=== PATIENT | male | born 1945 | race Caucasian/White ===

== ENCOUNTER 2019-05-14 12:04 | Outpatient (CLI) | payer MEDICARE, MEDICAID ==
--- NOTE | 2019-05-14 15:38 | MRI ---
MRI OF LEFT KNEE WITHOUT CONTRAST: 05/14/19 HISTORY: S83.242, tear of medial meniscus left knee. COMPARISON: None. FINDINGS: MEDIAL MENISCUS: High grade radial tear body posterior horn medial meniscus nearly 2 cm from the footprint involving t he free edge intermediate zone and portion of the red zone. There is a 4 mm medial gutter extrusion w ith loss of hoop stress. LATERAL MENISCUS: Intact. ACL and PCL are intact. MCL and LCL are intact. EXTENSOR MECHANISM: Quadriceps tendon and patella and patellar tendon are intact. CARTILAGE: Patellofemoral compartment: Multifocal full thickness cartilage fissures with subcortical reactive marrow changes of medial and l ateral trochlea and central trochlea as well as high grade cartilage fraying, greater than 50%, at th e lateral patella facet and patellar apex. Medial compartment: Full thickness cartilage defect throughout the posterior weightbearing surface medial femoral condyle involving the posterior flexion zone with subcortical reactive marrow changes and osteophyte formati on. There is also high grade 2% cartilage loss of the central weightbearing surface medial tibial geno teau. Lateral compartment: Multifocal 50-75% cartilage fissures. At the junction of the anterior weightbearing surface of the la teral femoral condyle and lateral trochlea is a full thickness cartilage loss with marrow edema. BONES: There is edema of the footprint of the medial meniscus or subcortical ganglion pseudocyst formation. SOFT TISSUES: Moderate to large joint effusion with mild synovitis. MUSCLES: Muscle signal is normal. IMPRESSION: 1. High grade radial tear posterior horn medial meniscus nearly 2 cm from the footprint and ext ending from the free edge of the intermediate and portion of the red zone with 4 mm medial gutter ext rusion and loss of hoop stress. 2. 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 3. Multifocal grade II and early grade II chondromalacia of the lateral compartment. 4. Moderate to large joint effusion with synovitis. 5. Thickened and edematous medial patellar plica. POS: HOME
== END 2019-05-14 12:05 | disposition home or self-care (01) ==
LOC: BICMRI 12:04
PROVIDERS: ATTEND Orthopaedic Surgery
DX: S83.242A Other tear of medial meniscus, current injury, left knee, initial encounter (principal); M22.42 Chondromalacia patellae, left knee; M25.462 Effusion, left knee; M65.862 Other synovitis and tenosynovitis, left lower leg

== ENCOUNTER 2019-06-18 10:10 | Outpatient (CLI) | payer MEDICARE, MEDICAID ==
[2019-06-18] MEDS ORDERED: ISOVUE-370 76%-LOCM 1 ML ONE (16:14)
--- NOTE | 2019-06-18 16:53 | CT ---
CT ABDOMEN AND PELVIS WITH AND WITHOUT IV CONTRAST: 06/18/19 HISTORY: Cancer of urinary bladder neck. History of prior surgery to remove cancer. COMPARISON: 12/09/13. FINDINGS: Vascular calcifications are seen in the abdominal aorta and involving the iliac arteries. Calcified granulomata are seen at the right lung base. There is a pulmonary nodule in a subpleural lo cation posterior left lower lobe which measures approximately 8 mm. Bibasilar atelectasis is present . There are hypodense hepatic lesions seen scattered throughout each lobe of the liver, also seen on pr ior exam in 2013 and given stability since prior exam, findings are likely related to multiple hepati c cysts. The spleen, pancreas, and bilateral adrenal glands demonstrate a normal CT appearance. A few subcentimeter too small to characterize hypodense lesions are seen in the right kidney. The lar ge hypodense lesion seen in the left kidney which are larger in size when compared to the prior study , but these larger hypodense cystic lesions demonstrate attenuation coefficients most compatible with renal cysts, largest in the mid portion left kidney measuring 2.5 cm. A nonobstructing inferior pole calculus measuring approximately 2 to 3 mm is now seen with two additional calcifications seen in th e superior pole left kidney which may represent either vascular calcifications or nonobstructing corey l calculi measuring approximately 3 mm. No right renal calculus is seen, and there is no evidence of a ureteral calculus seen bilaterally. The urinary bladder is incompletely distended but grossly gaston l in appearance. Small amount of retained fecal material seen throughout the colon. Loops of small bowel are normal in caliber. Degenerative changes are seen in the spine. Slight density in the proximal right femur has characteri stics most compatible with a bone island. IMPRESSION: 1. Nonobstructing left renal calculi with question of a tiny punctate right renal calculus versu s nonobstructing calculus. 2. Left renal cysts which have enlarged from prior study with subcentimeter too small to charact erize hypodense lesions right kidney. No enhancing renal mass seen. 3. Hepatic cysts. POS: [facility]
== END 2019-06-18 10:11 | disposition home or self-care (01) ==
LOC: BICCT 10:10
PROVIDERS: ATTEND Urology
DX: C67.5 Malignant neoplasm of bladder neck (principal); N20.0 Calculus of kidney; N28.1 Cyst of kidney, acquired; K76.89 Other specified diseases of liver
CPT/HCPCS: 74178; 82565; Q9966

== ENCOUNTER 2019-07-28 13:25 | Outpatient (CLI) | payer MEDICARE, MEDICAID ==
[2019-07-28 14:55] LABS: Hemoglobin 14.4 g/dL (14.0-18.0); Mean Corpuscular HGB CONC 34.6 g/dL (32.0-36.0); Mean Corpuscular Volume 95.2 fL (78.0-98.0); Mean Platelet Volume 7.7 fL (7.4-10.4); Platelet Count 278 thou/uL (130-400); RBC Distribution Width 13.1 % (11.5-14.5); Red Blood Cell (RBC) Count 4.37 mill/uL (4.70-6.10); White Blood Cell (WBC) Count 16.8 thou/uL (4.8-10.8)
[2019-07-28 14:58] LABS: INR-International Normal Ratio 1.1; Prothrombin Time 13.8 SEC (12.0-14.7)
[2019-07-28 14:59] LABS: PTT 31.6 SEC (22.9-36.1)
[2019-07-28 15:16] LABS: Anion Gap 13 mmol/L (10-20); BUN (Urea Nitrogen) 21 mg/dL (8.4-25.7); Calc. Creatinine Clearance 0 mL/min (70-130); Calcium 9.8 mg/dL (7.8-10.44); Carbon Dioxide 22 mmol/L (23-31); Chloride 105 mmol/L (98-107); Estimated GFR-MDRD 71; Glucose 90 mg/dL (83-110); Potassium 4.4 mmol/L (3.5-5.1); Sodium 136 mmol/L (136-145)
--- NOTE | 2019-07-29 19:58 | EKG ---
Test Reason : Blood Pressure : / mmHG Vent. Rate : 071 BPM Atrial Rate : 071 BPM P-R Int : 142 ms QRS Dur : 106 ms QT Int : 396 ms P-R-T Axes : 041 -31 045 degrees QTc Int : 430 ms Normal sinus rhythm Left axis deviation Abnormal ECG When compared with ECG of 14-SEP-2013 09:31, No significant change was found Confirmed by TRAMAINE LOPEZ, SErnst ([id number]) on 07/29/2019 7:57:50 PM Referred By: LISET Confirmed By:DR. Den REDD MD
== END 2019-07-28 13:26 | disposition home or self-care (01) ==
LOC: LABBT 13:25
PROVIDERS: ATTEND Urology
DX: Z01.818 Encounter for other preprocedural examination (principal); C67.9 Malignant neoplasm of bladder, unspecified
CPT/HCPCS: 80048; 81001; 85027; 85610; 85730; 87086; 93005; 93010

== ENCOUNTER 2019-07-30 08:29 | Day surgery (SDC) | payer MEDICARE, MEDICAID ==
[2019-07-28 13:44] VITALS: BMI 38.4
[2019-07-30] MEDS ORDERED: ePHEDrine 50 MG/ML VIAL ONE (10:08)
[2019-07-30] MEDS ORDERED: Ondansetron PF 4 MG/2 ML Vial ONE (10:08)
[2019-07-30] MEDS ORDERED: Lidocaine 1% PF 5 ML VIAL ONE (10:08)
[2019-07-30] MEDS ORDERED: PHENYLEPHRINE-NS 100 MCG/ML 10 ML SYRINGE ONE (10:08)
[2019-07-30] MEDS ORDERED: Ketorolac Tromethamine 30 MG/ML VIAL ONE (10:08)
[2019-07-30] MEDS ORDERED: PROPOFOL 200 MG/20 ML VIAL ONE (10:08)
[2019-07-30] MEDS ORDERED: Glycopyrrolate 0.2 MG/ML 5 ML SYRINGE ONE (10:08)
[2019-07-30] MEDS ORDERED: Dexamethasone 20 MG/5 ML VIAL ONE (10:08)
[2019-07-30] MEDS ORDERED: Levofloxacin 500 mg/D5W 100 ml Premix Bag ONE (11:38)
[2019-07-30] MEDS ORDERED: Iothalamate Meglumine 60% 50 ML VIAL FS ONE (13:36)
[2019-07-30] MEDS ORDERED: Midazolam HCl 2 mg/2 ml Vial ONE (13:42)
[2019-07-30] MEDS ORDERED: Fentanyl 100 MCG/2 ML VIAL ONE (13:42)
--- NOTE | 2019-07-30 14:31 | RAD ---
EXAM: Retrograde IVP HISTORY: Kidney stones COMPARISON: None FINDINGS/IMPRESSION: Limited intraoperative fluoroscopic views of the retrograde IVP were submitted f or interpretation. There is no evidence of hydronephrosis. No obvious filling defects are seen.
--- NOTE | 2019-07-30 16:19 | OP ---
DATE OF PROCEDURE: 07/30/2019 SERVICE: Urology. PREOPERATIVE DIAGNOSES: Positive cytology and history of bladder cancer. POSTOPERATIVE DIAGNOSES: Positive cytology and history of bladder cancer. PROCEDURES PERFORMED: Limited transurethral resection of the prostate, bladder biopsies with fulguration, bilateral selective cytologies, and bilateral retrograde pyelogram. INDICATIONS FOR PROCEDURE: Mr. Sheehan is a 73-year-old white male with previous history of low-grade bladder cancer. He continues to smoke, and on surveillance, he did not have any cystoscopic findings recurrence, but the cytology was positive. Prior CT urogram several months ago did not show any upper tract lesions. We elected to bring him back to the operating room due to the positive cytologies for selective cytologies, retrograde pyelograms, bladder biopsies, and resection of a limited portion of the prostatic urethra. All risks and benefits were discussed and he has agreed to proceed. DESCRIPTION OF PROCEDURE: After identification of armband and verification of consent, the patient was brought back to the operating room. He underwent general anesthesia with an LMA. He was placed in dorsal lithotomy position and prepped and draped in usual sterile fashion. After appropriate time-out, a lubricated 22-Kazakh rigid cystoscope was introduced per urethra into the bladder. The prostate showed minimal amounts of regrowth as consistent with outpatient cystoscopy. A full cystoscopy was done within the bladder and there were no obvious papillary type tumor lesions. The left ureteral orifice was first intubated with a 5-Kazakh Empire catheter and selective cytologies obtained by instilling 10 mL of normal saline to the kidney and letting it drain back out into the specimen cup. A new Empire catheter was then done on the right side for the same procedure. A retrograde pyelogram was then performed with the same Empire catheter on the right side, which demonstrated a normal caliber ureter, normal sharp cupped calices without filling defects, and normal renal pelvis. A retrograde pyelogram was then performed on the left side using the same Empire catheter, which demonstrated the same findings as the right with no evidence of filling defects or obstruction. The Empire catheter was then removed and the cystoscope removed. The resectoscope with visual obturator was then advanced through the urethra into the bladder and the visual obturator was switched out for the bipolar prostate resectoscope loop. Resection was carried out of some of the nodular regrowth areas plus the majority of the prostatic urethra and selected portions of erythematous areas of the bladder neck. These were all sent off for routine pathologic evaluation. Meticulous hemostasis was performed and once completely dry, the resectoscope removed. The 22-Kazakh rigid cystoscope was introduced back into the urethra and into the bladder again. Bladder biopsies were taken from the posterior bladder wall, left posterior bladder wall, right lateral bladder wall, and bladder dome. All these sites were fulgurated with the Bugbee electrode using sterile water, and once complete, hemostasis was achieved, the bladder was emptied and the cystoscope removed. The patient was then awakened, taken to PACU for recovery in stable condition. COMPLICATIONS: None. ESTIMATED BLOOD LOSS: Minimal. RETAINED TUBES AND DRAINS: None. SPECIMENS: Bilateral selective cytologies, prostatic urethral chips and 4 bladder biopsies. DISPOSITION: The patient will be discharged home and follow up with me in approximately 1 to 2 weeks for postop check. Job ID: [id number]
== END 2019-07-30 17:35 | disposition home or self-care (01) ==
LOC: SDC 08:29
PROVIDERS: ATTEND Urology
PROC: 0TBB8ZX Excision of Bladder, Via Natural or Artificial Opening Endoscopic, Diagnostic (ICD-10-PCS; principal; 2019-07-30)
PROC: 0VT08ZZ Resection of Prostate, Via Natural or Artificial Opening Endoscopic (ICD-10-PCS; 2019-07-30)
DX: N40.0 Benign prostatic hyperplasia without lower urinary tract symptoms (principal); N34.2 Other urethritis; G47.33 Obstructive sleep apnea (adult) (pediatric); E78.5 Hyperlipidemia, unspecified; M19.90 Unspecified osteoarthritis, unspecified site; F17.210 Nicotine dependence, cigarettes, uncomplicated; J44.9 Chronic obstructive pulmonary disease, unspecified; F10.11 Alcohol abuse, in remission; N20.0 Calculus of kidney; Z85.51 Personal history of malignant neoplasm of bladder; Z79.82 Long term (current) use of aspirin; Z79.899 Other long term (current) drug therapy; Z98.890 Other specified postprocedural states
CPT/HCPCS: 51798; 52204; 52630; 74420; 88112; 88305; 88307; C1758; C1769; J1956; J2250; J3010; J7620

== ENCOUNTER 2022-08-30 09:30 | Outpatient (CLI) | payer MEDICARE, MEDICAID | END 2022-08-30 09:31 | disposition home or self-care (01) | LOC: PET 09:30 | PROVIDERS: ATTEND Internal Medicine Critical Care Medicine | DX: R91.8 Other nonspecific abnormal finding of lung field (principal); C34.11 Malignant neoplasm of upper lobe, right bronchus or lung; C77.1 Secondary and unspecified malignant neoplasm of intrathoracic lymph nodes | CPT/HCPCS: 78815; A9552 ==

== ENCOUNTER 2022-09-05 07:58 | Day surgery (SDC) | payer MEDICARE, MEDICAID ==
[2022-08-30 12:54] VITALS: BMI 37.1
[2022-09-05 08:11] LABS: INR-International Normal Ratio 1.1; PTT 34.7 sec (22.9-36.1); Prothrombin Time 14.2 sec (12.0-14.7)
[2022-09-05 08:16] LABS: #Eosinphils 0.4 thou/uL (0.0-0.7); #Lymphocytes 2.3 thou/uL (1.20-3.40); #Monocytes 1.2 thou/uL (0.11-0.59); #Neutrophils 14.6 thou/uL (1.40-6.50); %Basophils 0.2 % (0.0-1.0); %Eosinophils 2.2 % (0.0-10.0); %Lymphocytes 12.4 % (21.0-51.0); %Monocytes 6.5 % (0.0-10.0); %Neutrophils 78.6 % (42.0-75.0); Hemoglobin 10.8 g/dL (14.0-18.0); Mean Corpuscular HGB CONC 30.7 g/dL (32.0-36.0); Mean Corpuscular Hemoglobin 27.9 pg (27.0-31.0); Mean Corpuscular Volume 90.8 fl (78.0-98.0); Mean Platelet Volume 7.1 fL (7.4-10.4); Platelet Count 409 10x3/uL (130-400); RBC Distribution Width 15.5 % (11.5-14.5); Red Blood Cell (RBC) Count 3.88 mill/uL (4.70-6.10); White Blood Cell (WBC) Count 18.5 10x3/uL (4.8-10.8)
[2022-09-05 08:43] VITALS: BP 109/70; TEMP 97.6
== END 2022-09-05 12:45 | disposition home or self-care (01) ==
LOC: CT 07:58
PROVIDERS: ATTEND Internal Medicine Critical Care Medicine
PROC: 0BBC3ZX Excision of Right Upper Lung Lobe, Percutaneous Approach, Diagnostic (ICD-10-PCS; principal; 2022-09-05)
DX: J84.10 Pulmonary fibrosis, unspecified (principal); J44.9 Chronic obstructive pulmonary disease, unspecified; E78.00 Pure hypercholesterolemia, unspecified; M19.90 Unspecified osteoarthritis, unspecified site; G89.29 Other chronic pain; I10 Essential (primary) hypertension; F17.210 Nicotine dependence, cigarettes, uncomplicated; E66.9 Obesity, unspecified; Z68.37 Body mass index [BMI] 37.0-37.9, adult; Z79.82 Long term (current) use of aspirin; Z79.899 Other long term (current) drug therapy
CPT/HCPCS: 32408; 71045; 77002; 85025; 85610; 85730; 88305; 88333

== ENCOUNTER 2022-10-08 09:15 | Outpatient (CLI) | payer MEDICARE, MEDICAID | END 2022-10-08 09:16 | disposition home or self-care (01) | LOC: SCSMRI 09:15 | PROVIDERS: ATTEND Internal Medicine Hematology & Oncology | DX: C34.01 Malignant neoplasm of right main bronchus (principal) | CPT/HCPCS: 70210; 70553 ==